=== PATIENT | female | born 1990 | race American Indian/Alaskan Native ===

== ENCOUNTER 2016-08-24 12:59 | Outpatient (CLI) | payer MEDICAID | END 2016-08-24 13:00 | disposition home or self-care (01) | LOC: CARD 12:59 | PROVIDERS: ATTEND Obstetrics & Gynecology | DX: O13.9 Gestational [pregnancy-induced] hypertension without significant proteinuria, unspecified trimester (principal); Z3A.00 Weeks of gestation of pregnancy not specified | CPT/HCPCS: 93005; 93010 ==

== ENCOUNTER 2016-12-10 02:17 | Emergency (ER) | payer MEDICAID ==
[2016-12-10] MEDS ORDERED: LACTATED RINGERS 1,000 ML IV ONE (02:35)
[2016-12-10 03:21] LABS: Bilirubin,Urine NEG (Negative); Blood,Urine NEG (Negative); Ketones,Urine NEG (Negative); Leukocyte Esterase,Urine SM (Negative); Mucus,Urine FEW /HPF; Nitrite,Urine NEG (Negative); Protein,Urine <15 mg/dL mg/dL (Negative); Urobilinogen,Urine < 2.0 mg/dL (<2.0)
[2016-12-10 05:09] LABS: Basophils % (Auto) 0.3 % (0.0-1.8); Eosinophils % (Auto) 0.8 % (0.0-4.3); Hematocrit 27.8 % (30.3-42.9); Hemoglobin 9.5 gm/dl (10.1-14.3); Mean Corpuscular HGB Conc 34 % (30-34); Mean Corpuscular Hemoglobin 30 pg (28-32); Mean Corpuscular Volume 88 fl (79-97); Platelet Count 230 K/mm3 (140-440); Red Blood Count 3.18 M/mm3 (3.65-5.03); Red Cell Distribution Width 13.4 % (13.2-15.2); White Blood Count 8.9 K/mm3 (4.5-11.0)
[2016-12-10 05:21] LABS: Anion Gap 18 mmol/L; Blood Urea Nitrogen 7 mg/dL (7-17); Calcium 8.9 mg/dL (8.4-10.2); Carbon Dioxide 22 mmol/L (22-30); Chloride 100.3 mmol/L (98-107); Glucose 79 mg/dL (65-100); Potassium 3.6 mmol/L (3.6-5.0); Sodium 137 mmol/L (137-145)
--- NOTE | 2016-12-10 09:27 | Emergency Department Report ---
HPI - General Chief Complaint: Chest Pain Time Seen by Provider: 12/10/16 09:10 - [facility] HPI: Room 24 The patient is a 26-year-old female presenting with a chief complaint of chest pain back pain and abdominal pain. The patient is approximately 27 weeks gestational age and states for 1 week she has had low back pain. The patient states for the past 2-3 days she has had a constant substernal chest pain described as aching in nature associated with shortness of breath pleurisy or cough that is not productive. Patient states she's also had lower abdominal pain for the past 2-3 days described as aching in nature area patient denies vaginal bleeding, dysuria, hematuria or fever. The patient states she has not notified her [employer]CEL[employer] TECHNICIAN of her above complaints Location: [see above] Duration: [see above] Quality: Aching Severity: Moderate Modifying factors: [see above] Context: [see above] Mode of transportation: Unknown ED Past Medical Hx - Past Medical History Previous Medical History?: Yes Hx Hypertension: Yes (& gestational HTN with last ) - Family History Family history: no significant - Social History Smoking Status: Former Smoker (none times one year) Substance Use Type: None (denies illicit drug use) ED Review of Systems ROS: Stated complaint: Other details as noted in HPI Comment: All other systems reviewed and negative Constitutional: denies: chills, fever Eyes: denies: eye pain, eye discharge, vision change ENT: denies: ear pain, throat pain Respiratory: cough, shortness of breath Cardiovascular: chest pain Endocrine: no symptoms reported Gastrointestinal: denies: abdominal pain, nausea, diarrhea Genitourinary: denies: urgency, dysuria, discharge Musculoskeletal: back pain Skin: denies: rash, lesions Neurological: denies: headache, weakness, paresthesias Psychiatric: denies: anxiety, depression Hematological/Lymphatic: denies: easy bleeding, easy bruising Physical Exam - Physical Exam Vital Signs: Vital Signs 12/10/16 12/10/16 12/10/16 02:47 02:49 03:18 Temperature 98.1 F Pulse Rate 88 83 Respiratory 18 Rate Blood Pressure 121/67 Blood Pressure [Right] O2 Sat by Pulse 97 Oximetry 12/10/16 12/10/16 12/10/16 03:23 03:28 03:33 Temperature Pulse Rate 87 82 81 Respiratory Rate Blood Pressure Blood Pressure [Right] O2 Sat by Pulse 95 95 98 Oximetry 12/10/16 12/10/16 12/10/16 03:38 03:43 04:35 Temperature 98.0 F Pulse Rate 88 85 81 Respiratory 18 Rate Blood Pressure 139/71 Blood Pressure [Right] O2 Sat by Pulse 98 96 100 Oximetry 12/10/16 07:58 Temperature 98.2 F Pulse Rate 83 Respiratory 19 Rate Blood Pressure Blood Pressure 112/69 [Right] O2 Sat by Pulse 100 Oximetry Physical Exam: GENERAL: The patient is well-developed well-nourished female lying on stretcher not appearing to be in acute distress. [] HEENT: Normocephalic. Atraumatic. Extraocular motions are intact. Patient has moist mucous membranes. NECK: Supple. Trachea midline CHEST/LUNGS: Clear to auscultation. There is no respiratory distress noted. HEART/CARDIOVASCULAR: Regular. There is no tachycardia. There is no gallop rub or murmur. ABDOMEN: Abdomen is soft, nontender. Patient has normal bowel sounds. There is no abdominal distention. SKIN: There is no rash. There is no edema. There is no diaphoresis. NEURO: The patient is awake, alert, and oriented. The patient is cooperative. The patient has normal speech MUSCULOSKELETAL: There is no evidence of acute injury. ED Course Vital Signs 12/10/16 12/10/16 12/10/16 02:47 02:49 03:18 Temperature 98.1 F Pulse Rate 88 83 Respiratory 18 Rate Blood Pressure 121/67 Blood Pressure [Right] O2 Sat by Pulse 97 Oximetry 12/10/16 12/10/16 12/10/16 03:23 03:28 03:33 Temperature Pulse Rate 87 82 81 Respiratory Rate Blood Pressure Blood Pressure [Right] O2 Sat by Pulse 95 95 98 Oximetry 12/10/16 12/10/16 12/10/16 03:38 03:43 04:35 Temperature 98.0 F Pulse Rate 88 85 81 Respiratory 18 Rate Blood Pressure 139/71 Blood Pressure [Right] O2 Sat by Pulse 98 96 100 Oximetry 12/10/16 07:58 Temperature 98.2 F Pulse Rate 83 Respiratory 19 Rate Blood Pressure Blood Pressure 112/69 [Right] O2 Sat by Pulse 100 Oximetry - Consultations Consultation #1: 12/10/16 12:40 Patient's PORCELAIN TECHNICIAN (Dr. Salcido) called 12/10/16 12:[address] Salcido-requests patient be given a copy of her workup and to follow-up in the office ED Medical Decision Making - Lab Data Result diagrams: 12/10/16 04:46 12/10/16 04:46 Laboratory Tests 12/10/16 12/10/16 12/10/16 02:34 04:46 04:46 WBC 8.9 RBC 3.18 L Hgb 9.5 L Hct 27.8 L MCV 88 MCH 30 MCHC 34 RDW 13.4 Plt Count 230 Lymph % (Auto) 21.1 [place] % (Auto) 8.7 H Eos % (Auto) 0.8 Baso % (Auto) 0.3 Lymph # 1.9 [place] # 0.8 Eos # 0.1 Baso # 0.0 Seg Neutrophils % 69.1 Seg Neutrophils # 6.2 Sodium 137 Potassium 3.6 Chloride 100.3 Carbon Dioxide 22 Anion Gap 18 BUN 7 Creatinine 0.4 L Estimated GFR > 60 BUN/Creatinine Ratio 17.50 Glucose 79 Calcium 8.9 Troponin T < 0.010 Urine Color Yellow Urine Turbidity Clear Urine pH 6.0 Ur Specific Rew 1.012 Urine Protein <15 mg/dl Urine Glucose (UA) Neg Urine Ketones Neg Urine Blood Neg Urine Nitrite Neg Urine Bilirubin Neg Urine Urobilinogen < 2.0 Ur Leukocyte Esterase Sm Urine WBC (Auto) 3.0 Urine RBC (Auto) 2.0 U Epithel Cells (Auto) < 1.0 Hyaline Casts 1 Urine Mucus Few Urine HCG, Qual 12/10/16 12/10/16 12/10/16 08:09 09:26 11:11 WBC RBC Hgb Hct MCV MCH MCHC RDW Plt Count Lymph % (Auto) [place] % (Auto) Eos % (Auto) Baso % (Auto) Lymph # [place] # Eos # Baso # Seg Neutrophils % Seg Neutrophils # Sodium Potassium Chloride Carbon Dioxide Anion Gap BUN Creatinine Estimated GFR BUN/Creatinine Ratio Glucose Calcium Troponin T < 0.010 < 0.010 Urine Color Urine Turbidity Urine pH Ur Specific Rew Urine Protein Urine Glucose (UA) Urine Ketones Urine Blood Urine Nitrite Urine Bilirubin Urine Urobilinogen Ur Leukocyte Esterase Urine WBC (Auto) Urine RBC (Auto) U Epithel Cells (Auto) Hyaline Casts Urine Mucus Urine HCG, Qual Positive A - EKG Data -: EKG Interpreted by Me EKG shows normal: sinus rhythm Rate: normal - EKG Data When compared to previous EKG there are: no significant change Interpretation: unchanged when compared t (08/24/2016) - Radiology Data Radiology results: report reviewed (VQ scan, pelvic ultrasound), image reviewed (chest x-ray, VQ scan, pelvic ultrasound) interpreted by me: Chest x-ray-no focal infiltrates, no pneumothorax Pelvic ultrasound (read by radiologist)- heart rate 122 bpm, placental grade 1, placenta anterior. 27 weeks 5 days gestational age VQ scan (read by radiologist)-normal perfusion scan - Differential Diagnosis GERD, pericarditis, PE, subchorionic hemorrhage, UTI Critical care attestation.: If time is entered above; I have spent that time in minutes in the direct care of this critically ill patient, excluding procedure time. ED Disposition Clinical Impression: Atypical chest pain, Abdominal pain, Disposition: DC-01 TO HOME OR SELFCARE Is pt being admited?: No Does the pt Need Aspirin: No Condition: Stable Instructions: Labor and Delivery General Instructions, Chest Pain (ED) Additional Instructions: Return to the emergency department immediately should you develop worsening symptoms, fever, inability to tolerate food or liquid or any other concerns. Referrals: PRIMARY CARE, [Primary Care Provider] - 3-[address] Salcido, [employer] TECHNICIAN [Other] - 3-5 Days Forms: [facility] Discharge Summary Time of Disposition: 12:50 Print Language: ITALIAN
--- NOTE | 2016-12-10 10:28 | XRay Report ---
AP CHEST: HISTORY: chest pain AP view of the chest demonstrates a normal mediastinal and cardiac contour with clear lungs and normal bony and soft tissue structures. IMPRESSION: Unremarkable AP chest.
--- NOTE | 2016-12-10 11:43 | Ultrasound Report ---
Gestation: single Position: breech Amniotic Fluid: WNL PORSHA = 17.1 cm Placenta: ANT Placental Grade: 1 Heart Rate: 122 BPM Cervical length: 6 cm (Normal > 3 cm) NEUROANATOMY VISUALIZED: Choroid Plexus Cisterna Magnum Cerebellum Lateral Ventricle ANATOMY VISUALIZED: Stomach Kidneys Bladder Diaphragm 4 Chamber Heart Heart 3 Vessel Cord Abd. Cord Insert SPINE VISUALIZED: Longitudinal Transverse AP Limited spine due to position BPD: 6.6 cm = 26 w 5 d HC: 25.8 cm = 28 w 0 d AC: 27.8 cm = 27 w 2 d FL: 5.1 cm = 27 w 3 d HC/AC Ratio: 1.13 Cephalic Index: 73.8 Estimated Weight: 1059 grams LMP: Clinical age = 27 w 5 d EDC: 03/06/17 US Gest. Age = 27 w 3 d EDC: 03/08/17
--- NOTE | 2016-12-10 12:17 | Nuclear Medicine Report ---
Perfusion lung scan. History: Chest pain in a patient who is 27 weeks . Findings: The study is limited to perfusion scan due to the patient's . There is homogeneous activity throughout both lung rider with no perfusion defects. Impression: Normal perfusion lung scan.
[2016-12-10 13:06] VITALS: BP 119/73
== END 2016-12-10 13:15 | disposition home or self-care (01) ==
LOC: ED 02:17 → TRG 02:17 → EDSTATUS 04:14 → ED 13:15
DX: O26.892 Other specified pregnancy related conditions, second trimester (principal); R07.89 Other chest pain; R10.30 Lower abdominal pain, unspecified; Z3A.27 27 weeks gestation of pregnancy; O16.2 Unspecified maternal hypertension, second trimester; O99.332 Smoking (tobacco) complicating pregnancy, second trimester
CPT/HCPCS: 36415; 71010; 76805; 78580; 80048; 81001; 81025; 84484; 85025; 93005; 93010; 99285; A9540

== ENCOUNTER 2017-01-31 23:10 | Outpatient (CLI) | payer MEDICAID ==
[2017-02-01] MEDS ORDERED: LACTATED RINGERS 500 ML IV ONE (00:17)
[2017-02-01 01:07] LABS: Bacteria,Urine 1+ /HPF (Negative); Bilirubin,Urine NEG (Negative); Blood,Urine NEG (Negative); Ketones,Urine NEG (Negative); Leukocyte Esterase,Urine SM (Negative); Nitrite,Urine NEG (Negative); Protein,Urine <15 mg/dL mg/dL (Negative); Urobilinogen,Urine < 2.0 mg/dL (<2.0)
== END 2017-02-01 01:46 | disposition home or self-care (01) ==
LOC: TRG 23:10
PROVIDERS: ATTEND Obstetrics & Gynecology
DX: O62.9 Abnormality of forces of labor, unspecified (principal); O26.893 Other specified pregnancy related conditions, third trimester; M54.9 Dorsalgia, unspecified; Z87.891 Personal history of nicotine dependence; Z3A.35 35 weeks gestation of pregnancy
CPT/HCPCS: 59025; 81001; 96360; J7120